=== PATIENT | male | born 1950 | race Caucasian/White ===

== ENCOUNTER 2023-06-17 18:53 | Inpatient (IN) | payer OTHER, MEDICAID ==
[~2023-06-17] VITALS: Ht 182.9 cm; Wt 99.8 kg
[2023-06-17 18:55] VITALS: BP 123/49; PULSE 73; RESP 21; TEMP 98; O2SAT 98
[2023-06-17 19:15] VITALS: BP 123/49; PULSE 99; O2SAT 99
[2023-06-17] MEDS ORDERED: POTASSIUM CHLORIDE 10 MEQ TABER PO PRN (19:45)
[2023-06-17] MEDS ORDERED: ONDANSETRON 4 MG/2 ML VIAL IVP PRN (19:45)
[2023-06-17] MEDS ORDERED: MAG SULF 2000 MG/WATER PREMIX 50 ML IV PRN (19:45)
[2023-06-17] MEDS ORDERED: SIME80TA41 GT (20:04)
[2023-06-17] MEDS ORDERED: ALPR0.5O4 GT (20:04)
[2023-06-17] MEDS ORDERED: ACET-1195 GT (20:04)
[2023-06-17 20:35] LABS: BASOPHILS # (AUTO) 0.1 K/uL (0.00-0.22); BASOPHILS % (AUTO) 0.5 % (0.0-2.0); EOSINOPHILS # (AUTO) 0.3 K/uL (0-0.4); EOSINOPHILS % (AUTO) 1.9 % (0.0-4.0); HEMATOCRIT 25.4 % (36-52); LYMPHOCYTES # (AUTO) 1.6 K/uL (2.0-11.5); LYMPHOCYTES % (AUTO) 10.9 % (20.5-51.1); MEAN CORPUSCULAR HEMOGLOBIN 28 pg (27-31); MEAN CORPUSCULAR HGB CONC 31 g/dL (33-37); MEAN CORPUSCULAR VOLUME 90.1 fL (80-94); MONOCYTES # (AUTO) 1.1 K/uL (0.8-1.0); MONOCYTES % (AUTO) 7.5 % (1.7-9.3); NEUTROPHILS # (AUTO) 11.9 K/uL (1.8-7.7); NEUTROPHILS % (AUTO) 79.2 % (42.2-75.2); PLATELET COUNT (AUTO) 661 K/uL (140-450); RED BLOOD CELL COUNT(AUTO) 2.82 MIL/uL (4.20-6.10); RED CELL DISTRIBUTION WIDTH 17.5 % (11.6-13.7)
[2023-06-17 20:43] LABS: ANION GAP 18.4 (8-16); CALCIUM 10.9 mg/dL (8.5-10.1); CARBON DIOXIDE 26.9 mmol/L (21-32); CHLORIDE 92 mmol/L (98-107); GLUCOSE 145 mg/dL (74-106); POTASSIUM 5.3 mmol/L (3.5-5.1); SODIUM SERUM 132 mmol/L (136-145)
[2023-06-17 20:47] LABS: CREATININE 4.8 mg/dL (0.6-1.3); INR 1.32 (0.8-1.2); PARTIAL THROMBOPLASTIN TIME 43.6 secs (22-35.6); PROTHROMBIN TIME 13.6 secs (10.8-13.4); UREA NITROGEN, BLOOD 96 mg/dL (7-18)
[2023-06-17 20:52] LABS: LACTIC ACID 1.4 mmol/L (0.4-2.0)
[2023-06-17 21:14] LABS: CHOL/HDL RATIO 3.9 (1-4.5); FREE T4 (FREE THYROXINE) 1.08 ng/dL (0.76-1.46); THYROID STIMULATING HORMONE 11.03 uIU/mL (0.34-3.74)
[2023-06-17] MEDS: DOCUSATE SODIUM 100 MG GELCAP PO SCH (22:00)
[2023-06-17 22:45] VITALS: PULSE 90; O2SAT 98
[2023-06-17 22:50] VITALS: PULSE 71; RESP 21; RESP 22; O2SAT 97
[2023-06-17 22:54] LABS: HIV RAPID SCREEN REACTIVE (NON REACTIV)
[2023-06-17] MEDS: NACL 0.9% 1,000 ML IV SCH (23:45)
[2023-06-18] VITALS (12 sets, daily range): BP systolic 106–161; BP diastolic 33–76; PULSE 61–88; RESP 21–24; TEMP 97.1–98.8; O2SAT 97–100
[2023-06-18] MEDS: ACETAMINOPHEN 325 MG TAB PO PRN (00:06)
[2023-06-18 07:25] LABS: BASOPHILS # (AUTO) 0.1 K/uL (0.00-0.22); BASOPHILS % (AUTO) 0.6 % (0.0-2.0); EOSINOPHILS # (AUTO) 0.4 K/uL (0-0.4); EOSINOPHILS % (AUTO) 2.8 % (0.0-4.0); HEMATOCRIT 24.8 % (36-52); HEMOGLOBIN 8.1 g/dL (12.0-18.0); LYMPHOCYTES # (AUTO) 1.6 K/uL (2.0-11.5); LYMPHOCYTES % (AUTO) 11.3 % (20.5-51.1); MEAN CORPUSCULAR HEMOGLOBIN 29 pg (27-31); MEAN CORPUSCULAR HGB CONC 33 g/dL (33-37); MONOCYTES # (AUTO) 1.1 K/uL (0.8-1.0); NEUTROPHILS # (AUTO) 10.8 K/uL (1.8-7.7); NEUTROPHILS % (AUTO) 77.3 % (42.2-75.2); PLATELET COUNT (AUTO) 607 K/uL (140-450); RED BLOOD CELL COUNT(AUTO) 2.76 MIL/uL (4.20-6.10); RED CELL DISTRIBUTION WIDTH 17.7 % (11.6-13.7)
[2023-06-18 07:49] LABS: ANION GAP 20.3 (8-16); CALCIUM 10.3 mg/dL (8.5-10.1); CARBON DIOXIDE 25.1 mmol/L (21-32); CHLORIDE 94 mmol/L (98-107); GLUCOSE 116 mg/dL (74-106); MAGNESIUM 2.8 mg/dL (1.8-2.4); PHOSPHORUS 6.1 mg/dL (2.5-4.9); POTASSIUM 5.4 mmol/L (3.5-5.1); SODIUM SERUM 134 mmol/L (136-145)
[2023-06-18 07:52] LABS: UREA NITROGEN, BLOOD 102 mg/dL (7-18)
[2023-06-18 07:53] LABS: CREATININE 4.9 mg/dL (0.6-1.3)
[2023-06-18 08:27] LABS: RAPID PLASMA REAGIN NON-REACTIVE (Non Reactiv)
[2023-06-18] MEDS: PANTOPRAZOLE 40 MG INJ VIAL IVP SCH (08:45)
[2023-06-18] MEDS ORDERED: SKINTEGRITY HYDROGEL TP SCH (17:15)
[2023-06-18] MEDS: HYDRAGUARD CREAM TP ONE (17:15)
[2023-06-19] VITALS (12 sets, daily range): BP systolic 94–139; BP diastolic 35–68; PULSE 70–110; RESP 20–24; TEMP 97.6–98.6; O2SAT 93–100
[2023-06-19] MEDS: HYDROcodone/APAP 7.5/325 MG 1 TAB PO PRN (05:35)
[2023-06-19] MEDS ORDERED: ALPRAZOLAM 0.5 MG GT SCH (06:00)
[2023-06-19] MEDS ORDERED: SKINTEGRITY HYDROGEL TP PRN (07:27)
[2023-06-19] MEDS ORDERED: ALPRAZolam 0.5 MG TAB PO PRN (07:30)
[2023-06-19] MEDS: DOCUSATE 100 MG/10 ML UDC GT SCH (09:22)
[2023-06-19 10:06] LABS: CD4 POSITIVE LYMPH % 34.8 % (30.8-58.5)
[2023-06-19] MEDS: MUPIROCIN CA NASAL 2% 1GM TUBE NS SCH (11:18)
[2023-06-19] MEDS: CHLORHEXADINE GLUC 2% CLOTH TP SCH (11:18)
[2023-06-19] MEDS ORDERED: CHLO118S2 TP (13:56)
[2023-06-19] MEDS ORDERED: MUPI2CRE22 NS (13:56)
[2023-06-20 14:32] LABS: CD4/CD8 RATIO 0.88 (0.92 - 3.72); CD8 POSITIVE LYMPH % 39.5 % (12.0 35.5); CD8 SUPPRESSOR ABSOLUTE 632 /uL (109 - 897)
[2023-06-20 17:32] LABS: CD4 HELPER ABSOLUTE 557 /uL (359 - 1519); HEMATOCRIT 26.4 % (36.0 - 50.0); MEAN CORPUSCULAR HEMOGLOBIN 28.7 pg (27 - 40); MEAN CORPUSCULAR HGB CONC 30.3 g/dL (32.0 - 36.0); MEAN CORPUSCULAR VOLUME 95 fL (80 - 98); RED BLOOD CELL 2.79 x10E6/uL (4.10 - 5.60); WHITE BLOOD CELL 14.4 x10E3/uL (4.0 - 10.5)
[2023-06-20 17:33] LABS: BASOPHILS % 1 % (0 - 3); EOSINOPHILS % 3 % (0 - 7); LYMPHOCYTES # 1.6 x10E3/uL (0.7 - 4.5); LYMPHOCYTES % 11 % (14 - 46); MONOCYTES % 7 % (4 - 13); NEUTROPHILS # 11.2 x10E3/uL (1.8 - 7.8); NEUTROPHILS % 77 % (40 - 74); PLATELETS 587 x10E3/uL (140 - 415); RED CELL DISTRIBUTION WIDTH 14.8 % (11.7 - 15.0)
[2023-06-20 17:34] LABS: BASOPHILS # 0.1 x10E3/uL (0.0 - 0.2); EOSINOPHILS # 0.4 x10E3/uL (0.0 - 0.4)
== END 2023-06-19 20:00 | DRG 640 ==
LOC: MED 18:53 → MTU 19:44
PROC: 5A1945Z Respiratory Ventilation, 24-96 Consecutive Hours (ICD-10-PCS; principal; 2023-06-17)
PROC: 5A1D70Z Performance of Urinary Filtration, Intermittent, Less than 6 Hours Per Day (ICD-10-PCS; 2023-06-18)
DX: E87.5 Hyperkalemia (principal); N17.0 Acute kidney failure with tubular necrosis; N18.6 End stage renal disease; J96.10 Chronic respiratory failure, unspecified whether with hypoxia or hypercapnia; Z99.11 Dependence on respirator [ventilator] status; E87.1 Hypo-osmolality and hyponatremia; E11.22 Type 2 diabetes mellitus with diabetic chronic kidney disease; E03.9 Hypothyroidism, unspecified; F41.9 Anxiety disorder, unspecified; D63.8 Anemia in other chronic diseases classified elsewhere; E78.5 Hyperlipidemia, unspecified; D75.839 Thrombocytosis, unspecified; E83.41 Hypermagnesemia; E83.39 Other disorders of phosphorus metabolism; R13.10 Dysphagia, unspecified; E86.0 Dehydration; Z99.2 Dependence on renal dialysis; Z91.158 Patient's noncompliance with renal dialysis for other reason; Z93.0 Tracheostomy status; Z93.1 Gastrostomy status; Z21 Asymptomatic human immunodeficiency virus [HIV] infection status
CPT/HCPCS: 36415; 71045; 80048; 82140; 82150; 83036; 83605; 83690; 83735; 83880; 84100; 84439; 84443; 84484; 85025; 85610; 85730; 86360; 86592; 87081; 87340; 93005; 94003; 99285; C9113; J1644

== ENCOUNTER 2023-06-22 19:51 | Inpatient (IN) | payer OTHER, MEDICAID ==
[~2023-06-22] VITALS: Ht 182.9 cm; Wt 115.8 kg
[~2023-06-22 19:51] MED LIST: ACET-1195 GT; ALPR0.5O4 GT; CHLO118S2 TP; MUPI2CRE22 NS; SIME80TA41 GT
[2023-06-22 20:17] VITALS: BP 142/63; PULSE 80; RESP 30; TEMP 98.3; O2SAT 100
[2023-06-22] MEDS: PIPERACILLIN/TAZOBACTAM 3.375 GM in DEXTROSE 5% 50 ML IV ONE (20:55)
[2023-06-22 21:43] LABS: BASOPHILS # (AUTO) 0.1 K/uL (0.00-0.22); BASOPHILS % (AUTO) 1.1 % (0.0-2.0); EOSINOPHILS # (AUTO) 0.1 K/uL (0-0.4); HEMATOCRIT 23.2 % (36-52); HEMOGLOBIN 7.5 g/dL (12.0-18.0); LYMPHOCYTES # (AUTO) 1.8 K/uL (2.0-11.5); LYMPHOCYTES % (AUTO) 17.4 % (20.5-51.1); MEAN CORPUSCULAR HEMOGLOBIN 29 pg (27-31); MEAN CORPUSCULAR HGB CONC 33 g/dL (33-37); MEAN CORPUSCULAR VOLUME 88.9 fL (80-94); MONOCYTES # (AUTO) 1.1 K/uL (0.8-1.0); MONOCYTES % (AUTO) 10.5 % (1.7-9.3); NEUTROPHILS # (AUTO) 7.4 K/uL (1.8-7.7); PLATELET COUNT (AUTO) 549 K/uL (140-450); RED BLOOD CELL COUNT(AUTO) 2.61 MIL/uL (4.20-6.10); RED CELL DISTRIBUTION WIDTH 18.2 % (11.6-13.7); WHITE BLOOD COUNT (AUTO) 10.5 K/uL (4.8-10.8)
[2023-06-22 21:56] LABS: ANION GAP 17.8 (8-16); CALCIUM 9.7 mg/dL (8.5-10.1); CHLORIDE 94 mmol/L (98-107); GLUCOSE 116 mg/dL (74-106); POTASSIUM 4.8 mmol/L (3.5-5.1); SODIUM SERUM 134 mmol/L (136-145)
[2023-06-22 22:05] LABS: ALANINE AMINOTRANSFERASE 17 U/L (12-78); ALBUMIN 1.7 g/dL (3.4-5.0); ALKALINE PHOSPHATASE 213 U/L (50-136); ASPARTATE AMINOTRANSFERASE 23 U/L (15-37); BILIRUBIN,DIRECT 0.3 mg/dL (0.0-0.3); TOTAL BILIRUBIN 0.5 mg/dL (0.0-1.0); TOTAL PROTEIN, SERUM 7.9 g/dL (6.4-8.2); UREA NITROGEN, BLOOD 78 mg/dL (7-18)
[2023-06-22 22:06] LABS: CREATININE 4.5 mg/dL (0.6-1.3)
[2023-06-22 22:23] LABS: LACTIC ACID 1.5 mmol/L (0.4-2.0)
[2023-06-22 22:37] VITALS: PULSE 89; O2SAT 100
[2023-06-22] MEDS ORDERED: PIPERACILLIN/TAZOBACTAM 3.375 GM VIAL IV ONE (22:46)
[2023-06-22 23:24] VITALS: BP 146/56; PULSE 72; PULSE 75; PULSE 79; RESP 18; TEMP 98.3; O2SAT 99
[2023-06-23] VITALS (15 sets, daily range): BP systolic 124–155; BP diastolic 30–110; PULSE 67–95; RESP 18–31; TEMP 97.2–98.3; O2SAT 95–100
[2023-06-23] MEDS ORDERED: HYDROcodone/APAP 5/325 MG 1 TAB TAB GT PRN (00:10)
[2023-06-23] MEDS ORDERED: DEXTROSE 50% 50 ML SYR IVP PRN (00:45)
[2023-06-23] MEDS: ACETAMINOPHEN 650 MG/20.3 ML UDC PO PRN (01:05)
[2023-06-23] MEDS: BLOOD GLUCOSE MONITORING 1 DEV DEV FS SCH (06:29)
[2023-06-23 06:32] LABS: BASOPHILS # (AUTO) 0.1 K/uL (0.00-0.22); BASOPHILS % (AUTO) 0.8 % (0.0-2.0); EOSINOPHILS # (AUTO) 0.1 K/uL (0-0.4); EOSINOPHILS % (AUTO) 1.3 % (0.0-4.0); HEMATOCRIT 20.5 % (36-52); LYMPHOCYTES # (AUTO) 1.7 K/uL (2.0-11.5); LYMPHOCYTES % (AUTO) 16.5 % (20.5-51.1); MEAN CORPUSCULAR HEMOGLOBIN 30 pg (27-31); MEAN CORPUSCULAR HGB CONC 33 g/dL (33-37); MEAN CORPUSCULAR VOLUME 88.9 fL (80-94); MONOCYTES # (AUTO) 1.3 K/uL (0.8-1.0); MONOCYTES % (AUTO) 11.8 % (1.7-9.3); NEUTROPHILS # (AUTO) 7.4 K/uL (1.8-7.7); NEUTROPHILS % (AUTO) 69.6 % (42.2-75.2); PLATELET COUNT (AUTO) 561 K/uL (140-450); RED BLOOD CELL COUNT(AUTO) 2.31 MIL/uL (4.20-6.10); RED CELL DISTRIBUTION WIDTH 18.4 % (11.6-13.7); WHITE BLOOD COUNT (AUTO) 10.6 K/uL (4.8-10.8)
[2023-06-23 07:04] LABS: ALANINE AMINOTRANSFERASE 17 U/L (12-78); ALBUMIN 1.6 g/dL (3.4-5.0); ALKALINE PHOSPHATASE 188 U/L (50-136); ANION GAP 17.9 (8-16); ASPARTATE AMINOTRANSFERASE 18 U/L (15-37); CALCIUM 9.2 mg/dL (8.5-10.1); CARBON DIOXIDE 25.7 mmol/L (21-32); CHLORIDE 95 mmol/L (98-107); GLUCOSE 101 mg/dL (74-106); POTASSIUM 4.6 mmol/L (3.5-5.1); SODIUM SERUM 134 mmol/L (136-145); TOTAL BILIRUBIN 0.4 mg/dL (0.0-1.0); TOTAL PROTEIN, SERUM 7.4 g/dL (6.4-8.2)
[2023-06-23 07:38] LABS: CREATININE 4.7 mg/dL (0.6-1.3); UREA NITROGEN, BLOOD 80 mg/dL (7-18)
[2023-06-23 07:55] LABS: HEMOGLOBIN 6.8 g/dL (12.0-18.0)
[2023-06-23] MEDS: LORazepam 0.5 MG TAB PO PRN (13:58)
[2023-06-23] MEDS ORDERED: HYDROcodone/APAP 7.5/325 MG 1 TAB PO PRN (15:35)
[2023-06-23] MEDS ORDERED: ACETAMINOPHEN 325 MG TAB PO PRN (15:35)
[2023-06-23] MEDS: NACL 0.9% 1,000 ML IV SCH (16:37)
[2023-06-23] MEDS: SODIUM FERRIC GLUCONATE 125 MG in NACL 0.9% 100 ML IV SCH (16:38)
[2023-06-23 16:44] LABS: INR 1.13 (0.8-1.2); PROTHROMBIN TIME 11.8 secs (10.8-13.4)
[2023-06-23 16:53] LABS: CHOL/HDL RATIO 4.7 (1-4.5); FREE T4 (FREE THYROXINE) 1.18 ng/dL (0.76-1.46); MAGNESIUM 2.2 mg/dL (1.8-2.4); PHOSPHORUS 3.6 mg/dL (2.5-4.9); THYROID STIMULATING HORMONE 13.91 uIU/mL (0.34-3.74)
[2023-06-23] MEDS: EPOETIN ALFA 4,000 UNITS/ML VIAL IV SCH (18:10)
[2023-06-23] MEDS: DOCUSATE SODIUM 100 MG GELCAP PO SCH (21:00)
[2023-06-23] MEDS: hydrALAZINE 25 MG TAB GT PRN (22:28)
[2023-06-24] VITALS (13 sets, daily range): BP systolic 98–152; BP diastolic 51–111; PULSE 65–91; RESP 20–22; TEMP 97.1–98.3; O2SAT 97–100
[2023-06-24] MEDS ORDERED: SIMETHICONE 80 MG TAB.CHEW GT PRN (01:20)
[2023-06-24] MEDS: ALPRAZolam 0.5 MG TAB GT SCH (05:25)
[2023-06-24] MEDS: ACETAMINOPHEN 650 MG/20.3 ML UDC GT PRN (05:26)
[2023-06-24 06:59] LABS: BASOPHILS % (AUTO) 0.4 % (0.0-2.0); EOSINOPHILS # (AUTO) 0.1 K/uL (0-0.4); EOSINOPHILS % (AUTO) 0.6 % (0.0-4.0); HEMATOCRIT 20.3 % (36-52); LYMPHOCYTES % (AUTO) 7.7 % (20.5-51.1); MEAN CORPUSCULAR HEMOGLOBIN 29 pg (27-31); MEAN CORPUSCULAR HGB CONC 33 g/dL (33-37); MEAN CORPUSCULAR VOLUME 89.6 fL (80-94); MONOCYTES # (AUTO) 1.4 K/uL (0.8-1.0); MONOCYTES % (AUTO) 10.5 % (1.7-9.3); NEUTROPHILS # (AUTO) 10.8 K/uL (1.8-7.7); NEUTROPHILS % (AUTO) 80.8 % (42.2-75.2); PLATELET COUNT (AUTO) 517 K/uL (140-450); RED BLOOD CELL COUNT(AUTO) 2.27 MIL/uL (4.20-6.10); RED CELL DISTRIBUTION WIDTH 18.3 % (11.6-13.7); WHITE BLOOD COUNT (AUTO) 13.4 K/uL (4.8-10.8)
[2023-06-24 07:48] LABS: HEMOGLOBIN 6.6 g/dL (12.0-18.0)
[2023-06-24 08:28] LABS: MAGNESIUM 2.2 mg/dL (1.8-2.4); PHOSPHORUS 4.3 mg/dL (2.5-4.9)
[2023-06-24] MEDS: MUPIROCIN CA NASAL 2% 1GM TUBE NS SCH (09:00)
[2023-06-24] MEDS: CHLORHEXADINE GLUC 2% CLOTH TP SCH (09:00)
[2023-06-24] MEDS: PANTOPRAZOLE 40 MG INJ VIAL IVP SCH ×2 (09:51→21:00)
[2023-06-24 10:45] LABS: ANION GAP 18.8 (8-16); CHLORIDE 96 mmol/L (98-107); CREATININE 3.8 mg/dL (0.6-1.3); GLUCOSE 139 mg/dL (74-106); POTASSIUM 3.8 mmol/L (3.5-5.1); SODIUM SERUM 136 mmol/L (136-145); UREA NITROGEN, BLOOD 54 mg/dL (7-18)
[2023-06-24] MEDS: IRON SUCROSE COMPLEX 100 MG/5 ML VIAL IVP SCH (16:43)
[2023-06-24] MEDS: ALBUMIN HUMAN 25% 100 ML IV ONE (19:49)
[2023-06-25] VITALS (16 sets, daily range): BP systolic 87–123; BP diastolic 36–91; PULSE 70–90; RESP 20; TEMP 97.3–98.4; O2SAT 94–100
[2023-06-25] MEDS: INSULIN LISPRO SLIDING SCALE 100 UNITS/ML VIAL SUBQ PRN (06:24)
[2023-06-25 07:06] LABS: BASOPHILS # (AUTO) 0.1 K/uL (0.00-0.22); BASOPHILS % (AUTO) 0.6 % (0.0-2.0); EOSINOPHILS # (AUTO) 0.4 K/uL (0-0.4); EOSINOPHILS % (AUTO) 2.8 % (0.0-4.0); HEMATOCRIT 20.9 % (36-52); LYMPHOCYTES # (AUTO) 1.2 K/uL (2.0-11.5); MEAN CORPUSCULAR HEMOGLOBIN 29 pg (27-31); MEAN CORPUSCULAR HGB CONC 32 g/dL (33-37); MONOCYTES # (AUTO) 1.3 K/uL (0.8-1.0); MONOCYTES % (AUTO) 9.6 % (1.7-9.3); NEUTROPHILS # (AUTO) 10.3 K/uL (1.8-7.7); PLATELET COUNT (AUTO) 487 K/uL (140-450); RED CELL DISTRIBUTION WIDTH 18.3 % (11.6-13.7); WHITE BLOOD COUNT (AUTO) 13.2 K/uL (4.8-10.8)
[2023-06-25 07:20] LABS: ANION GAP 13.6 (8-16); CALCIUM 9.5 mg/dL (8.5-10.1); CARBON DIOXIDE 27.9 mmol/L (21-32); CHLORIDE 98 mmol/L (98-107); CREATININE 3.1 mg/dL (0.6-1.3); GLUCOSE 171 mg/dL (74-106); POTASSIUM 3.5 mmol/L (3.5-5.1); SODIUM SERUM 136 mmol/L (136-145); UREA NITROGEN, BLOOD 42 mg/dL (7-18)
[2023-06-25 07:23] LABS: MAGNESIUM 1.9 mg/dL (1.8-2.4); PHOSPHORUS 3.5 mg/dL (2.5-4.9)
[2023-06-25 07:42] LABS: HEMOGLOBIN 6.7 g/dL (12.0-18.0)
[2023-06-25] MEDS: ALBUMIN HUMAN 25% 50 ML IV ONE (21:01)
[2023-06-25] MEDS: ALBUMIN HUMAN 25% 100 ML IV ONE (21:06)
[2023-06-26] VITALS (42 sets, daily range): BP systolic 63–168; BP diastolic 25–105; PULSE 67–120; RESP 18–30; TEMP 97.2–99.1; O2SAT 96–100
[2023-06-26] MEDS: NOREPINEPHRINE 4 MG/4 ML VIAL IV ONE (02:11)
[2023-06-26] MEDS: NOREPINEPHRINE 16 MG in DEXTROSE 5% 250 ML IV PRN (02:14)
[2023-06-26 06:12] LABS: BASOPHILS # (AUTO) 0.1 K/uL (0.00-0.22); BASOPHILS % (AUTO) 0.5 % (0.0-2.0); EOSINOPHILS # (AUTO) 0.3 K/uL (0-0.4); EOSINOPHILS % (AUTO) 2.3 % (0.0-4.0); HEMATOCRIT 20.2 % (36-52); LYMPHOCYTES # (AUTO) 1.2 K/uL (2.0-11.5); LYMPHOCYTES % (AUTO) 9.6 % (20.5-51.1); MEAN CORPUSCULAR HEMOGLOBIN 29 pg (27-31); MEAN CORPUSCULAR HGB CONC 32 g/dL (33-37); MEAN CORPUSCULAR VOLUME 91.9 fL (80-94); MONOCYTES # (AUTO) 1.5 K/uL (0.8-1.0); MONOCYTES % (AUTO) 11.3 % (1.7-9.3); NEUTROPHILS # (AUTO) 9.8 K/uL (1.8-7.7); NEUTROPHILS % (AUTO) 76.3 % (42.2-75.2); PLATELET COUNT (AUTO) 450 K/uL (140-450); RED BLOOD CELL COUNT(AUTO) 2.19 MIL/uL (4.20-6.10); RED CELL DISTRIBUTION WIDTH 18.4 % (11.6-13.7); WHITE BLOOD COUNT (AUTO) 12.8 K/uL (4.8-10.8)
[2023-06-26 06:27] LABS: ANION GAP 12.9 (8-16); CALCIUM 9.8 mg/dL (8.5-10.1); CARBON DIOXIDE 29.4 mmol/L (21-32); CHLORIDE 97 mmol/L (98-107); CREATININE 3.8 mg/dL (0.6-1.3); GLUCOSE 132 mg/dL (74-106); POTASSIUM 3.3 mmol/L (3.5-5.1); SODIUM SERUM 136 mmol/L (136-145); UREA NITROGEN, BLOOD 47 mg/dL (7-18)
[2023-06-26 06:40] LABS: HEMOGLOBIN 6.4 g/dL (12.0-18.0)
[2023-06-26 06:45] LABS: MAGNESIUM 2.4 mg/dL (1.8-2.4); PHOSPHORUS 3.5 mg/dL (2.5-4.9)
[2023-06-26] MEDS: NOREPINEPHRINE 8 MG in DEXTROSE 5% 250 ML IV PRN (12:48)
[2023-06-26] MEDS ORDERED: HYDRAGUARD CREAM TP PRN (13:20)
[2023-06-26] MEDS ORDERED: Z-GUARD PASTE TP PRN (13:20)
[2023-06-26] MEDS ORDERED: VANCOMYCIN PER PHARMACY MC PRN (18:50)
[2023-06-26] MEDS: CEFEPIME 1,000 MG in DEXTROSE 5% 50 ML IV SCH (21:12)
[2023-06-26] MEDS: VANCOMYCIN 1,000 MG in DEXTROSE 5% 250 ML IV SCH (21:44)
[2023-06-27] VITALS (56 sets, daily range): BP systolic 41–167; BP diastolic 18–118; PULSE 45–119; RESP 20–33; TEMP 98–98.9; O2SAT 92–100
[2023-06-27] MEDS: DOCUSATE 100 MG/10 ML UDC ONE (00:02)
[2023-06-27] MEDS: NOREPINEPHRINE 4 MG/4 ML VIAL IV ONE ×3 (00:03→15:18)
[2023-06-27] MEDS: HYDRAGUARD CREAM TP SCH (00:05)
[2023-06-27] MEDS: Z-GUARD PASTE TP SCH (00:08)
[2023-06-27] MEDS: BLOOD GLUCOSE MONITORING 1 DEV DEV FS SCH (05:59)
[2023-06-27 06:08] LABS: HIV 1/0/2 ABS, QUAL Non Reactive (Non Reactive)
[2023-06-27 06:45] LABS: BASOPHILS # (AUTO) 0.2 K/uL (0.00-0.22); BASOPHILS % (AUTO) 0.9 % (0.0-2.0); EOSINOPHILS # (AUTO) 0.2 K/uL (0-0.4); EOSINOPHILS % (AUTO) 0.7 % (0.0-4.0); HEMATOCRIT 23.2 % (36-52); HEMOGLOBIN 7.2 g/dL (12.0-18.0); LYMPHOCYTES # (AUTO) 1.5 K/uL (2.0-11.5); LYMPHOCYTES % (AUTO) 6.7 % (20.5-51.1); MEAN CORPUSCULAR HEMOGLOBIN 29 pg (27-31); MEAN CORPUSCULAR HGB CONC 31 g/dL (33-37); MEAN CORPUSCULAR VOLUME 92.7 fL (80-94); MONOCYTES # (AUTO) 2.4 K/uL (0.8-1.0); MONOCYTES % (AUTO) 10.8 % (1.7-9.3); NEUTROPHILS # (AUTO) 17.9 K/uL (1.8-7.7); NEUTROPHILS % (AUTO) 80.9 % (42.2-75.2); PLATELET COUNT (AUTO) 331 K/uL (140-450); RED CELL DISTRIBUTION WIDTH 18.1 % (11.6-13.7); WHITE BLOOD COUNT (AUTO) 22.1 K/uL (4.8-10.8)
[2023-06-27 06:54] LABS: ANION GAP 22.1 (8-16); CALCIUM 9.3 mg/dL (8.5-10.1); CARBON DIOXIDE 19.9 mmol/L (21-32); CHLORIDE 95 mmol/L (98-107); GLUCOSE 239 mg/dL (74-106); SODIUM SERUM 133 mmol/L (136-145); UREA NITROGEN, BLOOD 52 mg/dL (7-18)
[2023-06-27 07:09] LABS: CREATININE 4.1 mg/dL (0.6-1.3)
[2023-06-27 08:18] LABS: MAGNESIUM 2.4 mg/dL (1.8-2.4); PHOSPHORUS 4.8 mg/dL (2.5-4.9)
[2023-06-27] MEDS ORDERED: NOREPINEPHRINE 16 MG in DEXTROSE 5% 250 ML IV PRN (08:50)
[2023-06-27] MEDS: NOREPINEPHRINE 16 MG in DEXTROSE 5% 250 ML IV PRN (09:00)
[2023-06-27] MEDS: DOCUSATE 100 MG/10 ML UDC GT SCH (09:57)
[2023-06-27] MEDS: ALBUMIN HUMAN 25% 100 ML IV SCH (16:58)
[2023-06-27] MEDS: ALPRAZolam 0.5 MG TAB PO PRN (18:47)
[2023-06-28] VITALS (50 sets, daily range): BP systolic 35–186; BP diastolic 18–89; PULSE 43–113; RESP 25–39; TEMP 96–98.4; O2SAT 91–100
[2023-06-28] MEDS ORDERED: DOPamine 400 MG/D5W PREMIX 250 ML IV PRN (00:45)
[2023-06-28 01:12] LABS: BASOPHILS # (AUTO) 0.1 K/uL (0.00-0.22); BASOPHILS % (AUTO) 0.3 % (0.0-2.0); EOSINOPHILS % (AUTO) 0.1 % (0.0-4.0); HEMATOCRIT 26.4 % (36-52); HEMOGLOBIN 7.7 g/dL (12.0-18.0); LYMPHOCYTES # (AUTO) 1.5 K/uL (2.0-11.5); LYMPHOCYTES % (AUTO) 5.1 % (20.5-51.1); MEAN CORPUSCULAR HEMOGLOBIN 28 pg (27-31); MEAN CORPUSCULAR HGB CONC 29 g/dL (33-37); MEAN CORPUSCULAR VOLUME 97.2 fL (80-94); MONOCYTES # (AUTO) 2.2 K/uL (0.8-1.0); MONOCYTES % (AUTO) 7.6 % (1.7-9.3); NEUTROPHILS # (AUTO) 24.8 K/uL (1.8-7.7); NEUTROPHILS % (AUTO) 86.9 % (42.2-75.2); PLATELET COUNT (AUTO) 551 K/uL (140-450); RED BLOOD CELL COUNT(AUTO) 2.72 MIL/uL (4.20-6.10); RED CELL DISTRIBUTION WIDTH 18.2 % (11.6-13.7)
[2023-06-28 01:16] LABS: WHITE BLOOD COUNT (AUTO) 28.6 K/uL (4.8-10.8)
[2023-06-28 01:28] LABS: ALANINE AMINOTRANSFERASE 29 U/L (12-78); ALBUMIN 2.4 g/dL (3.4-5.0); ALKALINE PHOSPHATASE 210 U/L (50-136); ANION GAP 27.8 (8-16); ASPARTATE AMINOTRANSFERASE 68 U/L (15-37); CALCIUM 10.2 mg/dL (8.5-10.1); CARBON DIOXIDE 17.9 mmol/L (21-32); CHLORIDE 93 mmol/L (98-107); CREATININE 3.6 mg/dL (0.6-1.3); GLUCOSE 305 mg/dL (74-106); MAGNESIUM 2.5 mg/dL (1.8-2.4); POTASSIUM 4.7 mmol/L (3.5-5.1); SODIUM SERUM 134 mmol/L (136-145); TOTAL BILIRUBIN 0.7 mg/dL (0.0-1.0); TOTAL PROTEIN, SERUM 7.3 g/dL (6.4-8.2); UREA NITROGEN, BLOOD 41 mg/dL (7-18)
[2023-06-28] MEDS: DOPamine 400 MG/D5W PREMIX 250 ML IV PRN (05:32)
[2023-06-28 06:23] LABS: BLOOD GAS HCO3 10.1 mmol/L (22-26); BLOOD GAS PCO2 26.6 mmHg (35-45); BLOOD GAS PH 7.196 (7.35-7.45); BLOOD GAS PO2 76.7 mmHg (75-100)
[2023-06-28 06:24] LABS: BLOOD GAS BASE EXCESS -16.5 mmol/L (-2.0-2.0); BLOOD GAS O2 SAT% 8.7 % (92.0-98.5)
[2023-06-28] MEDS: SODIUM BICARBONATE 8.4% PFS 50 MEQ/50 ML SYR IVP SCH (06:29)
[2023-06-28] MEDS: SODIUM BICARBONATE 8.4% 100 MEQ in NACL 0.45% 1,000 ML IV SCH (08:03)
[2023-06-28] MEDS: NOREPINEPHRINE 4 MG/4 ML VIAL IV ONE (08:04)
[2023-06-28] MEDS: VANCOMYCIN 1.25GM PREMIX 250 ML IV SCH (08:53)
[2023-06-28] MEDS ORDERED: VASOPRESSIN 40 UNITS in NACL 0.9% 250 ML IV PRN (10:30)
[2023-06-28] MEDS: VASOPRESSIN 20 UNITS in NACL 0.9% 250 ML IV PRN (11:45)
[2023-06-28] MEDS ORDERED: NACL 0.9% 1,000 ML IV SCH (11:55)
[2023-06-28] MEDS: EPINEPHrine 1 mg/mL 1 MG in DEXTROSE 5% 250 ML IV PRN (12:48)
[2023-06-28 12:56] LABS: LACTIC ACID 7.6 mmol/L (0.4-2.0)
[2023-06-28] MEDS: ONDANSETRON 4 MG/2 ML VIAL IVP PRN (13:37)
[2023-06-28] MEDS: HYDROCORTISONE NA SUCC 100 MG/2 ML VIAL IV SCH (13:38)
[2023-06-28] MEDS ORDERED: EPINEPHrine 1 mg/mL 5 MG in DEXTROSE 5% 250 ML IV PRN (13:40)
[2023-06-28] MEDS: EPINEPHrine 1 mg/mL 5 MG in DEXTROSE 5% 250 ML IV PRN (14:41)
[2023-06-28] MEDS: EPINEPHrine 1 MG/ML AMP ONE (18:07)
[2023-06-29] VITALS (10 sets, daily range): PULSE 39–47; RESP 32–34; TEMP 96–98.1; O2SAT 51–100
[2023-06-29] MEDS: EPINEPHrine 1 MG/ML AMP ONE ×3 (01:03→03:47)
[2023-06-29] MEDS ORDERED: EPINEPHrine 1 MG/ML AMP ONE (02:04)
[2023-06-29] MEDS: SODIUM BICARBONATE 8.4% PFS 50 MEQ/50 ML SYR IVP ONE (02:58)
[2023-06-29] MEDS: SODIUM BICARBONATE 8.4% 100 MEQ in NACL 0.45% 1,000 ML IV SCH (03:10)
== END 2023-06-29 06:45 | DRG 974 ==
LOC: MED 19:51 → MTU 21:12 → MIC 06-26 01:35
PROC: 5A1955Z Respiratory Ventilation, Greater than 96 Consecutive Hours (ICD-10-PCS; principal; 2023-06-22)
PROC: 5A1D70Z Performance of Urinary Filtration, Intermittent, Less than 6 Hours Per Day (ICD-10-PCS; 2023-06-23)
PROC: 05HY33Z Insertion of Infusion Device into Upper Vein, Percutaneous Approach (ICD-10-PCS; 2023-06-23)
PROC: B54MZZA Ultrasonography of Right Upper Extremity Veins, Guidance (ICD-10-PCS; 2023-06-23)
PROC: 5A1D70Z Performance of Urinary Filtration, Intermittent, Less than 6 Hours Per Day (ICD-10-PCS; 2023-06-24)
PROC: 5A1D70Z Performance of Urinary Filtration, Intermittent, Less than 6 Hours Per Day (ICD-10-PCS; 2023-06-27)
DX: A41.9 Sepsis, unspecified organism (principal); J69.0 Pneumonitis due to inhalation of food and vomit; B20 Human immunodeficiency virus [HIV] disease; J96.21 Acute and chronic respiratory failure with hypoxia; N17.0 Acute kidney failure with tubular necrosis; R65.21 Severe sepsis with septic shock; N18.6 End stage renal disease; I12.0 Hypertensive chronic kidney disease with stage 5 chronic kidney disease or end stage renal disease; E87.1 Hypo-osmolality and hyponatremia; G82.20 Paraplegia, unspecified; Z99.11 Dependence on respirator [ventilator] status; E86.0 Dehydration; I46.9 Cardiac arrest, cause unspecified; D63.8 Anemia in other chronic diseases classified elsewhere; F41.9 Anxiety disorder, unspecified; R13.10 Dysphagia, unspecified; D75.839 Thrombocytosis, unspecified; E78.5 Hyperlipidemia, unspecified; E03.9 Hypothyroidism, unspecified; I44.7 Left bundle-branch block, unspecified; E11.22 Type 2 diabetes mellitus with diabetic chronic kidney disease; Z99.2 Dependence on renal dialysis; Z85.038 Personal history of other malignant neoplasm of large intestine; Z93.0 Tracheostomy status; Z93.1 Gastrostomy status; Z86.73 Personal history of transient ischemic attack (TIA), and cerebral infarction without residual deficits
CPT/HCPCS: 36415; 71045; 80048; 80053; 80076; 80202; 82140; 82150; 82272; 82948; 83036; 83605; 83690; 83735; 83880; 84100; 84439; 84443; 84484; 85025; 85610; 85730; 86702; 87040; 87081; 93005; 94003; 96365; 99291; C9113; J0171; J0692; J0885; J1265; J1720; J1756; J1815; J2405; J2543; J2916; J3370; J3372; J3490; J7030; J7060; P9046